=== PATIENT | male | born 1955 | race Caucasian/White ===

== ENCOUNTER → 2016-05-09 | Day surgery (SDC) | payer BC, MEDICARE ==
[~2016-05-09] MED LIST: ASPIRIN81 MG PO; BREO ELLIPTA 11 EACH INH; FISH OIL300 MG PO; GABAPENTIN300 MG PO; HCTZ PO; INCRUSE ELLI62.5 MCG INH; LISINOPRIL PO; OMEPRAZOLE40 M1 PO
--- NOTE | ~2016-05-09 | OR ---
Unit #: [id number] #: [id number] Patient: YURI JENKINS [id number] [address] [place], [place] [address] [id number] MR#: [id number] NAME: YURI JENKINS ROOM: Date of Procedure: 05/09/2016 Admission Date: 05/09/2016 Surgeon: Conor Stroud Jr., M.D. : 1955 Attending Physician: Conor Stroud Jr., M.D. OPERATIVE REPORT INDICATIONS FOR PROCEDURE The patient is a 60-year-old white male, who presents desiring screening colonoscopy. He has had no previous scopes. He has had no change in bowel habits and no rectal bleeding. He understands the procedure including the risks, including that of perforation and bleeding, and consents. PREOPERATIVE DIAGNOSIS Desired screening colonoscopy, rule out pathology. POSTOPERATIVE DIAGNOSIS Numerous tiny 1 mm polyps of the rectosigmoid area with several being biopsied as well as 2 to 3 mm polyp in the sigmoid at approximately 25 cm, which was snared and removed. There was diverticulosis of the left colon as well. ANESTHESIA MAC anesthesia. PROCEDURE PERFORMED Flexible colonoscopy to the cecum with biopsies of multiple polyps with both snare biopsy and cold biopsy forceps removal. DESCRIPTION OF PROCEDURE The patient was positioned in Vaughan position with left side down. After being given MAC anesthesia, digital rectal examination was performed, which revealed no palpable mass or tenderness. No blood or stool within the rectal ampulla. Prostate was normal by palpation. The Olympus colonoscope was advanced through the anal canal up the rectum and retroflexed down to the area of the anorectal region. There was no evidence of any fissures. There were couple of small internal hemorrhoidal tags. In the rectum, there was a small approximately 2 mm in diameter polyp, which was snared at its base and suctioned out through the suction port and sent to pathology. The base was well coagulated with no evidence of any bleeding or extensive burning. The scope was then advanced up in the rectosigmoid area at approximately 12 to 15 cm, there were numerous 1 mm polyps, 5 or 6 of these were biopsied without significant bleeding. The scope was then advanced around the sigmoid area, where there was another small polyp which was biopsied and removed and suctioned out through the suction port. The scope was then advanced up in the descending colon, where there were no additional polyps. There were a few diverticula in the sigmoid and descending colon without Unit #: [id number] #: [id number] Patient: YURI JENKINS evidence of diverticulitis. The scope was then advanced around the splenic flexure and the transverse colon, around hepatic flexure and ascending colon, down in the area of the cecum. The light from the tip of the scope could be seen transilluminating through right lower quadrant abdominal wall area. Multiple attempts advancing the scope up the distal ileum were unsuccessful. The scope was slowly removed. There were no tumors except for the polyps, so there were no other major polyps, no cancer, no AVMs, no evidence of any colitis or acute diverticulitis. The caliber of the colon appeared normal throughout. The scope was removed. The patient tolerated the procedure well and discharged in satisfactory condition. Dictated by... Conor Stroud Jr., MAmanda DAVENPORT/charlene TD: 05/09/2016 22:36 JOB #: [id number] OPERATIVE REPORT X Conor Stroud MD X PROCEDURE OPERATIVE NOTE
== END | disposition home or self-care (01) ==
LOC: COPS 05:47
DX: Z12.11 Encounter for screening for malignant neoplasm of colon (principal); D12.7 Benign neoplasm of rectosigmoid junction; D12.5 Benign neoplasm of sigmoid colon; K57.30 Diverticulosis of large intestine without perforation or abscess without bleeding; K21.9 Gastro-esophageal reflux disease without esophagitis; I10 Essential (primary) hypertension; J44.9 Chronic obstructive pulmonary disease, unspecified; E78.5 Hyperlipidemia, unspecified; Z87.891 Personal history of nicotine dependence
CPT/HCPCS: 88305